=== PATIENT | male | born 1990 | race Caucasian/White ===

== ENCOUNTER 2023-06-07 14:56 | Emergency (ER) | payer BC, MEDICAID, OTHER ==
[2023-06-07] MEDS ORDERED: Lidocaine 2% 20 ML MDV INFILT ONE (14:57)
[2023-06-07] MEDS ORDERED: Diphtheria,Pertussis(Acell),Tetanus Vaccine 0.5 ML Syringe IM ONE (15:38)
[2023-06-07] MEDS ORDERED: Bacitracin Oint 1 GM U/D Packet TOP ONE (15:38)
== END 2023-06-07 16:15 | disposition home or self-care (01) ==
LOC: FB.ED 14:56
DX: S51.812A Laceration without foreign body of left forearm, initial encounter (principal); F17.210 Nicotine dependence, cigarettes, uncomplicated; Z88.0 Allergy status to penicillin
CPT/HCPCS: 12002; 90471; 90715; 99282-25; 99283